=== PATIENT | female | born 1990 | race Caucasian/White ===

== ENCOUNTER 2024-10-31 19:52 | Emergency (ER) | payer SELFPAY ==
[2024-10-31 20:30] LABS: Absolute Basophils 0.1 K/uL (0-0.5); Absolute Eosinophils 0.1 K/uL (0-0.5); Absolute Lymphocytes (CBC) 2.1 K/uL (0.7-4.9); Absolute Monocytes 0.6 K/uL (0.1-1.3); Absolute Neutrophil 4.2 K/uL (1.8-8.0); Basophils % 0.8 % (0-1.3); Eosinophils % 1.5 % (0-4.4); Hematocrit 30.6 % (36.0-45.0); Hemoglobin 10.5 g/dL (12.0-15.0); Lymphocytes % 29.6 % (15.3-44.8); MCHC 34.3 g/dL (32.0-36.0); MCV 87.5 fL (80-100); MPV 7.4 fL (7.6-11.3); Monocytes % 8.6 % (3.3-12.3); Neutrophils % 59.5 % (41.7-73.7); Nucleated Red Blood Cells % 0.1 % (0-0); Platelets 255 thou/uL (152-406); RBC Red Blood Cell Count 3.49 M/uL (3.86-4.86); Red Cell Distribution Width 14.1 % (12.1-15.2)
[2024-10-31] MEDS ORDERED: KETOROLAC 30 MG/ML INJ ONE (20:41)
[2024-10-31 20:48] LABS: Albumin 3.3 g/dL (3.4-5.0); Albumin/Globulin Ratio 0.9 (1.1-1.8); Anion Gap 8.7 mEq/L (5.0-15.0); Bilirubin Total 0.2 mg/dL (0.2-1.0); Globulin 3.6 g/dL (2.3-3.5); Potassium 3.7 mEq/L (3.5-5.1); Protein, Total 6.9 g/dL (6.4-8.2)
--- NOTE | 2024-10-31 20:55 | EDPHYS ---
Physician Documentation [facility] Name: Patrica Verde Age: 34 yrs Sex: Female : 1990 Arrival Date: 10/31/2024 Time: 19:52 Bed 13 Private MD: ED Physician Benjamin Gentile HPI: 10/31 20:31 This 34 yrs old Female presents to ER via EMS with complaints of Probable Seizure. rt 20:31 Patient presents to the ED with reported seizure starting just prior to arrival. rt Patient states that her last seizure was when she was in residential. She reports compliance with her antiepileptic therapy including Tegretol, Keppra. The patient states that she has bodyaches from the seizure but denies other acute complaints at this time, symptoms are moderate in severity, no other aggravating alleviating factors.. 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 - Infectious Disease History:: Denies. - Social history:: Smoking status: Reported history of juuling and/or vaping. - Family history:: not pertinent. ROS: 20:31 Cardiovascular: Negative for chest pain, palpitations, and edema, Respiratory: Negative rt for shortness of breath, cough, wheezing, and pleuritic chest pain, Abdomen/GI: Negative for abdominal pain, nausea, vomiting, diarrhea, and constipation, Skin: Negative for injury, rash, and discoloration, 20:31 Constitutional: Positive for body aches, Negative for fever, 20:31 Neuro: Positive for seizure activity, Negative for altered mental status, Exam: 20:31 Constitutional: This is a well developed, well nourished patient who is awake, alert, rt and in no acute distress. Head/Face: Normocephalic, atraumatic. Chest/axilla: Normal chest wall appearance and motion. Nontender with no deformity. No lesions are appreciated. Cardiovascular: Regular rate and rhythm with a normal S1 and S2. No gallops, murmurs, or rubs. Normal PMI, no JVD. No pulse deficits. Respiratory: Lungs have equal breath sounds bilaterally, clear to auscultation and percussion. No rales, rhonchi or wheezes noted. No increased work of breathing, no retractions or nasal flaring. Abdomen/GI: Soft, non-tender, with normal bowel sounds. No distension or tympany. No guarding or rebound. No evidence of tenderness throughout. Skin: Warm, dry with normal turgor. Normal color with no rashes, no lesions, and no evidence of cellulitis. MS/ Extremity: Pulses equal, no cyanosis. Neurovascular intact. Full, normal range of motion. Neuro: Awake and alert, GCS 15, oriented to person, place, time, and situation. Cranial nerves II-XII grossly intact. Motor strength 5/5 in all extremities. Sensory grossly intact. Cerebellar exam normal. Normal gait. Vital Signs: 20:01 BP 114 / 74; Pulse 66; Resp 16; Temp 98.2(O); Pulse Ox 100% on R/A; Weight 84.37 kg; dd2 Pain 7/10; 20:55 BP 105 / 67; Pulse 64; Resp 16; Temp 98.1; Pulse Ox 98% on R/A; dd2 21:35 BP 112 / 69; Pulse 68; Resp 16; Pulse Ox 99% on R/A; dd2 20:01 Pain Scale: Adult dd2 Cynthia Coma Score: 20:05 Eye Response: spontaneous(4). Motor Response: obeys commands(6). Verbal Response: dd2 oriented(5). Total: 15. 20:55 Eye Response: spontaneous(4). Motor Response: obeys commands(6). Verbal Response: dd2 oriented(5). Total: 15. MDM: 20:04 Medical Screening Exam initiated rt 20:56 Differential diagnosis: Recurrent seizure, electrolyte disturbance. Data reviewed: rt vital signs, nurses notes, lab test result(s). Consideration of Admission/Observation Escalation of care including admission/observation considered. Patient is returned to baseline neurologic status, no focal neurodeficits, labs are benign, previous epilepsy history, stable for outpatient care with her neurologist.. Test considered but Not performed: CT: Denies any trauma, headache, as per existing seizure history, CT scan of the head is not indicated. Care significantly affected by the following chronic conditions: Epilepsy. Counseling: I had a detailed discussion with the patient and/or guardian regarding the historical points, exam findings, and any diagnostic results supporting the discharge/admit diagnosis, lab results, the need for outpatient follow up. Response to treatment: the patient's symptoms have markedly improved after treatment. 10/31 20:09 Order name: CBC with Diff; Complete Time: 20:48 rt 10/31 20: Order name: CMP; Complete Time: 20:48 rt 10/31 20: Order name: Test, Serum; Complete Time: 20:48 rt Administered Medications: 20:44 Drug: Ketorolac IVP 15 mg IVP once Route: IVP; Site: left antecubital; dd2 20:59 Follow up: Response: No adverse reaction dd2 Disposition Summary: 10/31/24 20:54 Discharge Ordered Notes: Location: Home rt Problem: new rt Symptoms: have improved rt Condition: Stable rt Diagnosis - Recurrent seizure rt Followup: rt - With: Private Physician - When: 2 - 3 days - Reason: Discharge Instructions: - Discharge Summary Sheet rt - Seizure, Adult rt Forms: - Medication Reconciliation Form rt - Antibiotic Education rt - Prescription Opioid Use rt - Patient Portal Instructions rt - Leadership Thank You Letter rt Signatures: Dispatcher [employer] Benjamin Hwang MD MD rt AZ RABAGO RN RN dd2 Corrections: (The following items were deleted from the chart) 20:10 20:10 CBC+H.LAB.BRZ ordered. EDMS EDMS 20:10 20:10 COMPREHENSIVE METABOLIC PANEL+C.LAB.BRZ ordered. EDMS EDMS 20:10 20:10 TEST, SERUM+SC.LAB.BRZ ordered. EDMS EDMS
--- NOTE | 2024-10-31 20:55 | ER ---
Nurse's Notes [facility] Name: Patrica Verde Age: 34 yrs Sex: Female : 1990 Arrival Date: 10/31/2024 Time: 19:52 Bed 13 Private MD: Diagnosis: Recurrent seizure Presentation: 10/31 20:01 Chief complaint: EMS states: TONED OUT TO [facility] FOR SEIZURE ACTIVITY LASTING dd2 APPROX 10 MINS. PER EMS, PT WAS AAOX4 ON ARRIVAL AND PT HAD TREMOR ACTIVITY EN ROUTE BUT REMAINED ALERT. Coronavirus screen: At this time, the client does not indicate any symptoms associated with coronavirus-19. Ebola Screen: No symptoms or risks identified at this time. Initial Sepsis Screen: Does the patient meet any 2 criteria? No. Patient's initial sepsis screen is negative. Does the patient have a suspected source of infection? No. Patient's initial sepsis screen is negative. Risk Assessment: Do you want to hurt yourself or someone else? Patient reports no desire to harm self or others. Onset of symptoms was October 31, 2024. Care prior to arrival: IV initiated. 20 GA, in the left antecubital area. Activity prior to arrival: seizure. 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 - Infectious Disease History:: Denies. - Social history:: Smoking status: Reported history of juuling and/or vaping. - Family history:: not pertinent. Screenin:55 [facility] ED Fall Risk Assessment (Adult) History of falling in the last 3 months, dd2 including since admission No falls in past 3 months (0 pts) Confusion or Disorientation No (0 pts) Intoxicated or Sedated No (0 pts) Impaired Gait No (0 pts) Mobility Assist Device Used No (0 pt) Altered Elimination No (0 pt) Score/Fall Risk Level 0 - 2 = Low Risk Oriented to surroundings, Maintained a safe environment, Educated pt \T\ family on fall prevention, incl call for assistance when getting out of bed, Assessed \T\ reinforced patient's understanding of fall precautions, Hourly rounding (assess needs \T\ fall precautionary measures) done. Abuse screen: Denies threats or abuse. Nutritional screening: No deficits noted. Tuberculosis screening: No symptoms or risk factors identified. Assessment: 20:55 General: Appears in no apparent distress. Behavior is calm, cooperative, appropriate dd2 for age. Pain: Complains of pain in top of head and right side of the back of head Pain does not radiate. Pain currently is 8 out of 10 on a pain scale. Quality of pain is described as throbbing. Neuro: Alonzo Agitation-Sedation Scale (RASS): 0 - Alert and Calm Level of Consciousness is awake, alert, obeys commands, Oriented to person, place, time, situation, Appropriate for age Literacy Coordinator are equal bilaterally Moves all extremities. Gait is steady, Speech is normal, Facial symmetry appears normal, Pupils are PERRLA, Intact. Cardiovascular: No deficits noted. Patient's skin is warm and dry. Respiratory: No deficits noted. Airway is patent Respiratory effort is even, unlabored, Respiratory pattern is regular, symmetrical. GI: No deficits noted. Abdomen is non-distended, Abd is soft and non tender. : No deficits noted. EENT: No deficits noted. No signs and/or symptoms were reported regarding the EENT system. Derm: No deficits noted. No signs and/or symptoms reported regarding the dermatologic system. Musculoskeletal: No deficits noted. No signs and/or symptoms reported regarding the musculoskeletal system. Circulation, motion, and sensation intact. Range of motion: intact in all extremities. Vital Signs: 20:01 BP 114 / 74; Pulse 66; Resp 16; Temp 98.2(O); Pulse Ox 100% on R/A; Weight 84.37 kg; dd2 Pain 7/10; 20:55 BP 105 / 67; Pulse 64; Resp 16; Temp 98.1; Pulse Ox 98% on R/A; dd2 21:35 BP 112 / 69; Pulse 68; Resp 16; Pulse Ox 99% on R/A; dd2 20:01 Pain Scale: Adult dd2 Cynthia Coma Score: 20:05 Eye Response: spontaneous(4). Motor Response: obeys commands(6). Verbal Response: dd2 oriented(5). Total: 15. 20:55 Eye Response: spontaneous(4). Motor Response: obeys commands(6). Verbal Response: dd2 oriented(5). Total: 15. ED Course: 19:53 Patient arrived in ED. [id number] 19:56 Benjamin Gentile MD is Attending Physician. rt 20:01 AZ RABAGO RN is Primary Nurse. dd2 20:05 Triage completed. dd2 20:05 Arm band placed on right wrist. Patient placed in an exam room, on a stretcher, on dd2 pulse oximetry. 20:21 Test, Serum Sent. dd2 20:21 CMP Sent. dd2 20:21 CBC with Diff Sent. dd2 20:55 Patient has correct armband on for positive identification. Bed in low position. Call dd2 light in reach. Side rails up X2. Seizure precautions initiated. Client placed on continuous cardiac and pulse oximetry monitoring. NIBP monitoring applied. Door closed. Noise minimized. Warm blanket given. Pillow given. Verbal reassurance given. 20:55 No provider procedures requiring assistance completed. Maintain EMS IV. Dressing dd2 intact. Good blood return noted. Site clean \T\ dry. Gauge \T\ site: 20G RAC. Flushed with 10 mL NS. Patient maintains SpO2 saturation greater than 95% on room air. 21:35 Provided Education on: D/C EDUCATION. dd2 21:55 IV discontinued, intact, bleeding controlled, No redness/swelling at site. Pressure dd2 dressing applied. Administered Medications: 20:44 Drug: Ketorolac IVP 15 mg IVP once Route: IVP; Site: left antecubital; dd2 20:59 Follow up: Response: No adverse reaction dd2 Medication: 20:55 VIS not applicable for this client. dd2 Outcome: 20:54 Discharge ordered by . rt 21:55 Discharged to Rehab Facility dd2 21:55 Condition: stable 21:55 Discharge instructions given to patient, Instructed on discharge instructions, follow up and referral plans. medication usage, Demonstrated understanding of instructions, follow-up care, medications, 21:56 Patient left the ED. br2 Signatures: Josie Nj [id number] Benjamin Gentile MD MD rt Zahra Garcia, RN RN br2 AZ RABAGO, RN RN dd2
[2024-10-31 22:30] VITALS: TEMP 98.1
[2024-10-31 22:34] VITALS: BP 112/69; O2SAT 99
== END 2024-10-31 21:56 | disposition home or self-care (01) ==
LOC: ER 19:52
DX: G40.909 Epilepsy, unspecified, not intractable, without status epilepticus (principal)
CPT/HCPCS: 36415; 80053; 84703; 85025; 96374; 99284

== ENCOUNTER 2024-11-01 17:01 | Emergency (ER) | payer OTHER, SELFPAY ==
[2024-11-01] MEDS ORDERED: NA CHLORIDE 0.9% 1,000 ML ONE (17:38)
[2024-11-01] MEDS ORDERED: ACETAMINOPHEN 500 MG TAB ONE (18:11)
[2024-11-01] MEDS ORDERED: METOCLOPRAMIDE 10 MG/2mL INJ ONE (18:12)
[2024-11-01] MEDS ORDERED: DIPHENHYDRAMINE 50 MG/ML VIAL ONE (18:12)
[2024-11-01] MEDS ORDERED: NA CHLORIDE 0.9% 50 ML ONE (18:12)
[2024-11-01 18:13] LABS: Absolute Basophils 0.1 K/uL (0-0.5); Absolute Eosinophils 0.1 K/uL (0-0.5); Absolute Lymphocytes (CBC) 1.9 K/uL (0.7-4.9); Absolute Monocytes 0.5 K/uL (0.1-1.3); Absolute Neutrophil 3.8 K/uL (1.8-8.0); Basophils % 1.1 % (0-1.3); Eosinophils % 1.7 % (0-4.4); Hematocrit 34.5 % (36.0-45.0); Hemoglobin 11.7 g/dL (12.0-15.0); Lymphocytes % 30.1 % (15.3-44.8); MCH 29.8 pg (27.0-35.0); MCHC 33.9 g/dL (32.0-36.0); MCV 87.9 fL (80-100); MPV 7.7 fL (7.6-11.3); Monocytes % 7.9 % (3.3-12.3); Neutrophils % 59.2 % (41.7-73.7); Nucleated Red Blood Cells % 0.1 % (0-0); Platelets 260 thou/uL (152-406); RBC Red Blood Cell Count 3.92 M/uL (3.86-4.86)
[2024-11-01 18:17] LABS: Specific Gravity 1.008 (1.005-1.030)
[2024-11-01 18:23] LABS: Specific Gravity 1.009 (1.005-1.030); Sqamous Epithelial <5 /HPF (None Seen); Urine Bacteria <20 /HPF (<20); Urine Bilirubin NEGATIVE (Negative); Urine Blood Negative (Negative); Urine Clarity Turbid (Clear); Urine Color Colorless (Yellow); Urine Culture Reflex Order NOT NEEDED; Urine Glucose NEGATIVE (Negative); Urine Ketones NEGATIVE (Negative); Urine Microscopic Reflex YN ORDER UMIC; Urine Mucus Slight /HPF (None Seen); Urine Nitrite NEGATIVE (Negative); Urine Protein NEGATIVE (Negative); Urine RBC <5 /HPF (None Seen); Urine Urobilinogen Normal (Normal); Urine WBC <5 /HPF (<5); Urine pH 5.5 (5.0-7.0)
[2024-11-01 18:24] LABS: Barbiturates NEGATIVE (NEGATIVE); Benzodiazepines NEGATIVE (NEGATIVE); Cocaine NEGATIVE (NEGATIVE); METHAMPHETAM NEGATIVE (NEGATIVE); Methadone NEGATIVE (NEGATIVE); Opiates NEGATIVE (NEGATIVE); Phencyclidine NEGATIVE (NEGATIVE); THC Cannibis NEGATIVE (NEGATIVE)
[2024-11-01 18:24] LABS: PTT, Activated Partial Thromb 27.7 SECONDS (24.3-36.9); Protime INR 1.14
[2024-11-01 18:29] LABS: SARS-CoV-2 Antigen CONTROL BLUE LINE VIS/BG OK; SARS-CoV-2 Antigen Rapid Res Negative (Negative)
[2024-11-01 18:48] LABS: ALT/SGPT 25 U/L (13-56); AST/SGOT 23 U/L (15-37); Albumin 3.5 g/dL (3.4-5.0); Albumin/Globulin Ratio 0.9 (1.1-1.8); Alkaline Phosphatase 127 U/L (45-117); Anion Gap 9.9 mEq/L (5.0-15.0); BUN Blood Urea Nitrogen 12 mg/dL (7-18); Bicarbonate 24 mEq/L (21-32); Bilirubin Total 0.2 mg/dL (0.2-1.0); Creatine Phosphokinase 125 U/L (26-192); Globulin 3.7 g/dL (2.3-3.5); Glomerular Filtration Rate 115 ml/min (=/>90); Glucose Level 95 mg/dL (74-106); Potassium 3.9 mEq/L (3.5-5.1); Protein, Total 7.2 g/dL (6.4-8.2); Sodium Level 138 mEq/L (136-145)
[2024-11-01 18:52] LABS: Bilirubin Direct < 0.2 mg/dL (0-0.2)
--- NOTE | 2024-11-01 18:57 | RAD REPORT ---
EXAMINATION: CT HEAD WITHOUT CONTRAST CLINICAL INDICATION: Female, 34 years old.WEAKNESS TECHNIQUE: Axial CT images from the skull base to the vertex without intravenous contrast. Coronal an d sagittal reformatted images were created from the data set. One or more of the following dose reduction techniques were used: Automated exposure control, adjustment of the mA and/or kV according to patient size, and/or iterative reconstruction. Unless otherwise specified, incidental findings do not require dedicated imaging follow-up. [id number]. COMPARISON: No prior exam. FINDINGS: INTRACRANIAL: No acute intracranial hemorrhage. No hydrocephalus. No mass effect or midline shift. No significant white matter disease. VASCULATURE: No visualized abnormalities in the arteries or dural venous sinuses. SCALP/SKULL: No significant soft tissue or osseous abnormalities. SINUSES: The visualized paranasal sinuses and mastoid air cells are predominantly clear. IMPRESSION: No acute intracranial abnormality.
[2024-11-01] MEDS ORDERED: KETOROLAC 30 MG/ML INJ ONE (19:14)
--- NOTE | 2024-11-01 19:45 | EDPHYS ---
Physician Documentation [facility] Name: Patrica Verde Age: 34 yrs Sex: Female : 1990 Arrival Date: 11/01/2024 Time: 17:01 Bed 16 Private MD: ED Physician Markie Sanchez HPI: 11/01 17:25 This 34 yrs old Female presents to ER via EMS with complaints of Dizziness. cp 17:25 The patient's problem is reported as weakness, that is generalized, dizziness. cp 17:25 Onset: The symptoms/episode began/occurred today. Associated signs and symptoms: cp Pertinent positives: headache, symptoms started with right side of body shaking and pain all over, Pertinent negatives: abdominal pain, chest pain, fever. Patient's baseline: Neuro: alert and fully oriented, Motor: no deficits, Ambulation: walks without assistance, Speech: normal. 17:25 Severity of symptoms: in the emergency department the symptoms are unchanged despite cp EMS interventions. 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 - Irregular menses, Not rg5 Historical: - Allergies: 17:28 doxycycline hyclate; ph 17:28 Iodine; ph 17:28 Latex; ph 17:28 PENICILLINS; ph - Home Meds: 17:28 carbamazepine 100 mg oral Capsule, ER Multiphase 12 hr 3 caps 2 times per day [Active]; ph levetiracetam 500 mg oral tablet 2 times per day [Active]; gabapentin 100 mg oral capsule 1 cap 2 times per day [Active]; mirtazapine 15 mg oral tablet 1 tab daily [Active]; olanzapine 10 mg oral tablet 1 tab daily [Active]; - PMHx: 17:28 Anxiety; chronic back pain; depressive disorder; Seizure; ph - Immunization history:: Adult Immunizations unknown. - Infectious Disease History:: Denies. - Social history:: Smoking status: unknown. ROS: 17:30 Constitutional: Negative for fever, cp 17:30 Cardiovascular: Negative for chest pain, cp 17:30 Abdomen/GI: Positive for nausea, Negative for abdominal pain, vomiting, diarrhea, constipation, 17:30 Neuro: Positive for dizziness, headache, weakness, Negative for altered mental status, 17:30 Eyes: Negative for injury, pain, redness, and discharge, cp 17:30 ENT: Negative for drainage from ear(s), ear pain, sore throat, difficulty swallowing, difficulty handling secretions, 17:30 Respiratory: Negative for cough, shortness of breath, wheezing, 17:30 : Negative for urinary symptoms, vaginal bleeding, 17:30 All other systems are negative, Exam: 17:35 Constitutional: The patient appears in no acute distress, alert, awake, cp non-diaphoretic, non-toxic, well developed, well nourished, 17:35 Head/Face: Normocephalic, atraumatic. cp 17:35 Eyes: Periorbital structures: appear normal, Pupils: equal, round, and reactive to cp light and accomodation, Extraocular movements: intact throughout, Conjunctiva: normal, no exudate, no injection, Sclera: no appreciated abnormality, Lids and lashes: appear normal, bilaterally, 17:35 ENT: External ear(s): are unremarkable, Nose: is normal, Mouth: Lips: moist, Oral mucosa: moist, Posterior pharynx: Airway: no evidence of obstruction, patent, 17:35 Neck: ROM/movement: is normal, is supple, without pain, no range of motions cp limitations, 17:35 Chest/axilla: Inspection: normal, 17:35 Cardiovascular: Rate: normal, Rhythm: regular, Edema: is not appreciated, JVD: is not appreciated, 17:35 Respiratory: the patient does not display signs of respiratory distress, Respirations: normal, no use of accessory muscles, no retractions, labored breathing, is not present, Breath sounds: are clear throughout, no decreased breath sounds, no stridor, no wheezing, 17:35 Abdomen/GI: Inspection: abdomen appears normal, Palpation: abdomen is soft and non-tender, in all quadrants, 17:35 Neuro: Orientation: to person, place \T\ time. Mentation: is normal, Cerebellar function: Romberg testing is negative, Motor: moves all fours, no focal deficits, Sensation: no obvious gross deficits, 18:55 ECG was reviewed by the Attending Physician. cp 19:00 Radiologist reports: no acute findings cp Vital Signs: 17:26 BP 109 / 52; Pulse 65; Resp 18; Temp 97.4; Pulse Ox 98% on R/A; Weight 84.37 kg; Height ph 5 ft. 8 in. ; 19:02 BP 138 / 83; Pulse 68; Resp 18; Pulse Ox 98% on R/A; ph 19:15 BP 100 / 59; Pulse 60; Resp 17; Temp 98(O); Pulse Ox 100% on R/A; Pain 8/10; rg5 17:26 Body Mass Index 28.28 (84.37 kg, 172.72 cm) ph 19:15 Pain Scale: Adult rg5 MDM: 17:19 Medical Screening Exam initiated cp 18:15 Differential diagnosis: CVA, TIA, metabolic disorder, drug effects. 19:44 Data reviewed: vital signs, nurses notes, lab test result(s), EKG, radiologic studies, cp CT scan, and as a result, I will discharge patient. 19:44 I considered the following discharge prescriptions or medication management in the emergency department Medications were administered in the Emergency Department. See MAR. Independent interpretation of the following test(s) in the Emergency Department EKG: See my EKG interpretation above. Counseling: I had a detailed discussion with the patient and/or guardian regarding the historical points, exam findings, and any diagnostic results supporting the discharge/admit diagnosis, lab results, radiology results, to return to the emergency department if symptoms worsen or persist or if there are any questions or concerns that arise at home. Response to treatment: the patient's symptoms have mildly improved after treatment. 02 17:20 Order name: Acetaminophen; Complete Time: 18:58 cp 02/08 17:20 Order name: Basic Metabolic Panel; Complete Time: 18:58 cp 02/08 17:20 Order name: CBC with Diff; Complete Time: 18:44 cp 02/08 18:45 Interpretation: Normal except: HGB 11.7; HCT 34.5. cp 02/08 17:20 Order name: ETOH Level; Complete Time: 18:58 cp 02/08 17:20 Order name: Hepatic Function; Complete Time: 18:58 cp 02/08 19:10 Interpretation: Normal except: ALK 127; IBILI, CALC 0.0; GLOB 3.7; A/G 0.9. cp 02/08 17:20 Order name: PT-INR; Complete Time: 18:44 cp 02/08 17:20 Order name: Test, Urine; Complete Time: 18:44 cp 02/08 17:20 Order name: Ptt, Activated; Complete Time: 18:45 cp 02/08 17:20 Order name: Salicylate; Complete Time: 18:58 cp 02 17:20 Order name: Urinalysis w/ reflexes; Complete Time: 18:44 cp 11/01 19:09 Interpretation: Normal except: [facility] Turbid. cp 02 17:20 Order name: Urine Drug Screen; Complete Time: 18:45 cp 11/01 17:20 Order name: CK; Complete Time: 18:58 cp 11/01 19:10 Interpretation: Reviewed. cp 11/01 17:20 Order name: Influenza Screen (a \T\ B); Complete Time: 18:45 cp 11/01 17:20 Order name: SARS RAPID; Complete Time: 18:45 cp 11/01 17:23 Order name: Tegretol Level; Complete Time: 19:09 cp 11/01 19:09 Interpretation: Reviewed. cp 02 17:24 Order name: CT Head Brain wo Cont; Complete Time: 18:58 cp 02 18:58 Interpretation: Report reviewed. cp 11/01 17:20 Order name: EKG; Complete Time: 17:21 cp 11/01 17:20 Order name: EKG - Nurse/Tech; Complete Time: 18:06 cp 11/01 17:20 Order name: IV Saline Lock; Complete Time: 18:07 cp 11/01 17:20 Order name: Labs collected and sent; Complete Time: 18:07 cp EC:55 Rate is 70 beats/min. Rhythm is regular. NH interval is normal. QRS interval is normal. cp QT interval is normal. T waves are Inverted in lead aVR. Interpreted by me. Reviewed by me. Administered Medications: 18:06 Drug: NS 0.9% IV 1000 ml IV at 1000 ml once; to be given as a bolus over 60 minutes ph Route: IV; Rate: 1000 ml; Site: right wrist; 19:01 Follow up: Response: No adverse reaction; IV Status: Completed infusion; IV Intake: ph 1000ml 18:53 Drug: metoCLOPramide IVP 10 mg IVP once; over 1 to 2 minutes Route: IVP; Site: right ph wrist; 19:01 Follow up: Response: No adverse reaction ph 18:53 Drug: diphenhydrAMINE IVP 25 mg IVP once Route: IVP; Site: right wrist; ph 19:01 Follow up: Response: No adverse reaction ph 18:53 Drug: Acetaminophen PO 1000 mg PO once Route: PO; ph 19:01 Follow up: Response: No adverse reaction ph 19:15 Drug: Ketorolac IVP 15 mg IVP once Route: IVP; Site: right hand; rg5 19:46 Follow up: Response: No adverse reaction; Pain is decreased rg5 Disposition Summary: 11/01/24 19:44 Discharge Ordered Notes: Location: Home cp Problem: new cp Symptoms: have improved cp Condition: Stable cp Diagnosis - Weakness cp - Dizziness and giddiness cp - Pain, unspecified cp Followup: cp - With: Private Physician - When: 2 - 3 days - Reason: Recheck today's complaints Discharge Instructions: - Discharge Summary Sheet cp - Dizziness cp - Weakness cp - Acute Pain, Adult cp Forms: - Medication Reconciliation Form cp - Antibiotic Education cp - Prescription Opioid Use cp - Patient Portal Instructions cp - Leadership Thank You Letter cp Prescriptions: - Diclofenac Sodium 75 mg Oral Tablet Sustained Release - take 1 tablet ORAL route 2 times per day; 30 tablet; Refills: 0, Product cp Selection Permitted Signatures: Dispatcher [employer] EDEthel Chiu, RN RN ph Ramses Jorge, PAMELA PA cp Mauro Robles, RN RN rg5 Corrections: (The following items were deleted from the chart) 17:21 17:21 ACETAMINOPHEN+C.LAB.BRZ ordered. EDMS EDMS 17:21 17:21 BASIC METABOLIC PANEL+C.LAB.BRZ ordered. EDMS EDMS 17:21 17:21 CBC+H.LAB.BRZ ordered. EDMS EDMS 17:21 17:21 ETHANOL+C.LAB.BRZ ordered. EDMS EDMS 17:21 17:21 HEPATIC FUNCTION+C.LAB.BRZ ordered. EDMS EDMS 17:21 17:21 PROTIME (+INR)+COAG.LAB.BRZ ordered. EDMS EDMS 17:21 17:21 Test, Urine+UC.LAB.BRZ ordered. EDMS EDMS 17:21 17:21 PTT, ACTIVATED+COAG.LAB.BRZ ordered. EDMS EDMS 17:21 17:21 SALICYLATE+C.LAB.BRZ ordered. EDMS EDMS 17:21 17:21 Urinalysis+U.LAB.BRZ ordered. EDMS EDMS 17:21 17:21 URINE DRUG SCREEN+UC.LAB.BRZ ordered. EDMS EDMS 17:21 17:21 CREATINE PHOSPHOKINASE+C.LAB.BRZ ordered. EDMS EDMS 17:21 17:21 Influenza Screen (A \T\ B)+BA.LAB.BRZ ordered. EDMS EDMS 17:21 17:21 SARS-COV-2 Antigen Rapid+I.LAB.BRZ ordered. EDMS EDMS 17:30 17:30 This 34 yrs old Female presents to ER via EMS with unknown complaint. cp cp 18:07 17:20 Suicide Screening ([place]) ordered. cp ph
--- NOTE | 2024-11-01 19:45 | ER ---
Nurse's Notes [facility] Name: Patrica Verde Age: 34 yrs Sex: Female : 1990 Arrival Date: 11/01/2024 Time: 17:01 Bed 16 Private MD: Diagnosis: Weakness;Dizziness and giddiness;Pain, unspecified Presentation: 11/01 17:26 Chief complaint: EMS states: Pt from [facility], c/o generalized weakness, dizziness ph and pain all over, VSS, hx of seizures, was seen in ED last night for seizure, no seizures today. Coronavirus screen: Vaccine status: Patient reports being unvaccinated. Ebola Screen: No symptoms or risks identified at this time. Initial Sepsis Screen: Does the patient meet any 2 criteria? No. Patient's initial sepsis screen is negative. Does the patient have a suspected source of infection? No. Patient's initial sepsis screen is negative. Risk Assessment: Do you want to hurt yourself or someone else? Patient reports no desire to harm self or others. Onset of symptoms was November 01, 2024. 17:26 Method Of Arrival: EMS: [facility] ph 17:26 Acuity: JUSTYNA 3 ph Triage Assessment: 17:31 General: Appears in no apparent distress. Behavior is calm, cooperative, Reports ph fatigue for 12-24 hours. Pain: Complains of pain in "all over". Neuro: Level of Consciousness is awake, alert, obeys commands, Oriented to person, place, time, situation, Reports dizziness, weakness. Cardiovascular: Reports fatigue, lightheadedness, Capillary refill < 3 seconds in bilateral fingers Patient's skin is warm and dry. Respiratory: Airway is patent Respiratory effort is even, unlabored. GI: Patient currently denies abdominal pain, nausea, vomiting. : No signs and/or symptoms were reported regarding the genitourinary system. Derm: Skin is pink, warm \\T\\ dry. Musculoskeletal: Circulation, motion, and sensation intact. Range of motion: intact in all extremities. 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 LMP N/A - Irregular menses, Not rg5 Historical: - Allergies: 17:28 doxycycline hyclate; ph 17:28 Iodine; ph 17:28 Latex; ph 17:28 PENICILLINS; ph - Home Meds: 17:28 carbamazepine 100 mg oral Capsule, ER Multiphase 12 hr 3 caps 2 times per day [Active]; ph levetiracetam 500 mg oral tablet 2 times per day [Active]; gabapentin 100 mg oral capsule 1 cap 2 times per day [Active]; mirtazapine 15 mg oral tablet 1 tab daily [Active]; olanzapine 10 mg oral tablet 1 tab daily [Active]; - PMHx: 17:28 Anxiety; chronic back pain; depressive disorder; Seizure; ph - Immunization history:: Adult Immunizations unknown. - Infectious Disease History:: Denies. - Social history:: Smoking status: unknown. Screenin:32 [facility] ED Fall Risk Assessment (Adult) History of falling in the last 3 months, ph including since admission Yes- physiologic fall (2 pts) Confusion or Disorientation No (0 pts) Intoxicated or Sedated No (0 pts) Impaired Gait No (0 pts) Mobility Assist Device Used No (0 pt) Altered Elimination No (0 pt) Score/Fall Risk Level 0 - 2 = Low Risk Oriented to surroundings, Maintained a safe environment, Hourly rounding (assess needs \\T\\ fall precautionary measures) done. Abuse screen: Denies threats or abuse. Denies injuries from another. Nutritional screening: No deficits noted. Tuberculosis screening: No symptoms or risk factors identified. Assessment: 18:05 General: SEE TRIAGE ASSESSMENT. ph 19:15 General: Appears in no apparent distress. comfortable. rg5 19:15 Pain: Complains of pain in head Pain currently is 8 out of 10 on a pain scale. Quality rg5 of pain is described as aching. Neuro: Reports dizziness, headache. Cardiovascular: Denies chest pain, Patient's skin is warm and dry. Respiratory: Airway is patent Trachea midline Respiratory effort is even, unlabored, Respiratory pattern is regular, symmetrical. GI: Abdomen is round non-distended. : No signs and/or symptoms were reported regarding the genitourinary system. EENT: No deficits noted. Derm: Skin is intact, Skin is dry, Skin is normal. Musculoskeletal: Circulation, motion, and sensation intact. Range of motion: intact in all extremities. Vital Signs: 17:26 BP 109 / 52; Pulse 65; Resp 18; Temp 97.4; Pulse Ox 98% on R/A; Weight 84.37 kg; Height ph 5 ft. 8 in. ; 19:02 BP 138 / 83; Pulse 68; Resp 18; Pulse Ox 98% on R/A; ph 19:15 BP 100 / 59; Pulse 60; Resp 17; Temp 98(O); Pulse Ox 100% on R/A; Pain 8/10; rg5 17:26 Body Mass Index 28.28 (84.37 kg, 172.72 cm) ph 19:15 Pain Scale: Adult rg5 Vitals: 19:02 Cardiac Rhythm Assessment Sinus rhythm. ph ED Course: 17:15 Patient arrived in ED. em1 17:18 Ramses Jorge PA is PHCP. cp 17:18 Markie Sanchez MD is Attending Physician. cp 17:26 Ethel Erwin, YOSEF is Primary Nurse. ph 17:28 Triage completed. ph 17:32 Arm band placed on Patient placed in an exam room, on a stretcher, on pulse oximetry. ph 17:33 Patient has correct armband on for positive identification. Bed in low position. Call ph light in reach. Side rails up X2. Pulse ox on. NIBP on. Door closed. Noise minimized. Warm blanket given. Pillow given. 18:05 Initial lab(s) drawn, by mn, sent to lab. Urine collected: clean catch specimen, clear, ph COVID swab sent to lab. Flu and/or RSV swab sent to lab. Missed attempt(s): 20 gauge in right antecubital area. Bleeding controlled, band aid applied, catheter tip intact. Inserted saline lock: 22 gauge in right wrist, using aseptic technique. Blood collected. Flushed with 10 mL NS. 18:06 Tegretol Level Sent. ph 18:06 SARS RAPID Sent. ph 18:06 Influenza Screen (a \\T\\ B) Sent. ph 18:06 CK Sent. ph 18:07 Acetaminophen Sent. ph 18:07 Basic Metabolic Panel Sent. ph 18:07 CBC with Diff Sent. ph 18:07 ETOH Level Sent. ph 18:07 Hepatic Function Sent. ph 18:07 PT-INR Sent. ph 18:07 Test, Urine Sent. ph 18:07 Ptt, Activated Sent. ph 18:07 Salicylate Sent. ph 18:07 Urinalysis w/ reflexes Sent. ph 18:07 Urine Drug Screen Sent. ph 18:39 CT Head Brain wo Cont In Process Unspecified. EDMS 19:24 No provider procedures requiring assistance completed. rg5 19:47 IV discontinued, bleeding controlled, No redness/swelling at site. Pressure dressing rg5 applied. 20:00 Provided Education on: post er care. rg5 Administered Medications: 18:06 Drug: NS 0.9% IV 1000 ml IV at 1000 ml once; to be given as a bolus over 60 minutes ph Route: IV; Rate: 1000 ml; Site: right wrist; 19:01 Follow up: Response: No adverse reaction; IV Status: Completed infusion; IV Intake: ph 1000ml 18:53 Drug: metoCLOPramide IVP 10 mg IVP once; over 1 to 2 minutes Route: IVP; Site: right ph wrist; 19:01 Follow up: Response: No adverse reaction ph 18:53 Drug: diphenhydrAMINE IVP 25 mg IVP once Route: IVP; Site: right wrist; ph 19:01 Follow up: Response: No adverse reaction ph 18:53 Drug: Acetaminophen PO 1000 mg PO once Route: PO; ph 19:01 Follow up: Response: No adverse reaction ph 19:15 Drug: Ketorolac IVP 15 mg IVP once Route: IVP; Site: right hand; rg5 19:46 Follow up: Response: No adverse reaction; Pain is decreased rg5 Medication: 17:33 VIS not applicable for this client. ph Intake: 19:01 IV: 1000ml; Total: 1000ml. ph Outcome: 19:44 Discharge ordered by MD. cp 19:59 Discharged to home ambulatory, rg5 19:59 Condition: stable 19:59 Instructed on discharge instructions, Demonstrated understanding of instructions, Prescriptions given X 1, 20:00 Patient left the ED. rg5 Signatures: Dispatcher [employer] David Portillo em1 Ethel Erwin, RN RN ph Ramses Jorge PA PA cp Mauro Robles, RN RN rg5
[2024-11-01 20:27] VITALS: BP 100/59; TEMP 98; O2SAT 100
--- NOTE | 2024-11-04 12:50 | EKG ---
Test Date: 2024-11-01 Test Time: 18:48:05 Botany Technician: SAQIB MEASUREMENT RESULTS: Intervals: Rate: 70 ME: 160 QRSD: 84 QT: 428 QTc: 462 [place]: P: 70 ME: 160 QRS: 76 T: 45 INTERPRETIVE STATEMENTS: Sinus rhythm with occasional PVCs Prolonged QT Abnormal ECG No previous ECG available for comparison Electronically Signed On 11-04-24 12:44:45 ROLL PLUGGER by Grady Mcmanus
== END 2024-11-01 20:00 | disposition home or self-care (01) ==
LOC: ER 17:01
DX: R53.1 Weakness (principal); R42 Dizziness and giddiness; R52 Pain, unspecified; Z11.52 Encounter for screening for COVID-19
CPT/HCPCS: 93005; 85025; 81001; 80048; 36415; 82550; 80156; 81025; 85610; 80076; 85730; 80307; 87804 ×2; 70450; 99285; 80143; 80179; 82077; 87811; J2765; J1200; J7030

== ENCOUNTER 2024-11-02 19:44 | Emergency (ER) | payer OTHER, SELFPAY ==
[2024-11-02 20:34] LABS: Absolute Eosinophils 0.1 K/uL (0-0.5); Absolute Lymphocytes (CBC) 1.8 K/uL (0.7-4.9); Absolute Monocytes 0.4 K/uL (0.1-1.3); Basophils % 0.8 % (0-1.3); Eosinophils % 1.5 % (0-4.4); Hematocrit 30.5 % (36.0-45.0); Hemoglobin 10.5 g/dL (12.0-15.0); Lymphocytes % 34.4 % (15.3-44.8); MCH 29.9 pg (27.0-35.0); MCHC 34.5 g/dL (32.0-36.0); MCV 86.7 fL (80-100); MPV 7.5 fL (7.6-11.3); Neutrophils % 56.3 % (41.7-73.7); Nucleated Red Blood Cells % 0.1 % (0-0); Platelets 253 thou/uL (152-406); RBC Red Blood Cell Count 3.52 M/uL (3.86-4.86); Red Cell Distribution Width 14.1 % (12.1-15.2)
[2024-11-02] MEDS ORDERED: LORazepam 2 MG/ML VIAL ONE (20:37)
[2024-11-02] MEDS ORDERED: KETOROLAC 30 MG/ML INJ ONE (20:37)
[2024-11-02] MEDS ORDERED: NA CHLORIDE 0.9% 1,000 ML ONE (20:38)
[2024-11-02 20:58] LABS: PT Prothrombin Time 11.8 SECONDS (9.4-12.5); PTT, Activated Partial Thromb 28.4 SECONDS (24.3-36.9); Protime INR 1.13
[2024-11-02 21:03] LABS: ALT/SGPT 23 U/L (13-56); AST/SGOT 18 U/L (15-37); Albumin 3.1 g/dL (3.4-5.0); Albumin/Globulin Ratio 0.8 (1.1-1.8); Alkaline Phosphatase 119 U/L (45-117); Anion Gap 9.5 mEq/L (5.0-15.0); BUN Blood Urea Nitrogen 9 mg/dL (7-18); Bicarbonate 24 mEq/L (21-32); Globulin 3.8 g/dL (2.3-3.5); Glomerular Filtration Rate 117 ml/min (=/>90); Glucose Level 108 mg/dL (74-106); Potassium 3.5 mEq/L (3.5-5.1); Protein, Total 6.9 g/dL (6.4-8.2); Sodium Level 142 mEq/L (136-145)
[2024-11-02 21:04] LABS: Bilirubin Direct < 0.2 mg/dL (0-0.2); Bilirubin Total < 0.2 mg/dL (0.2-1.0)
[2024-11-02] MEDS ORDERED: LEVETIRACETAM 500 MG/5 ML VIAL IV ONE (21:12)
[2024-11-02] MEDS ORDERED: NA CHLORIDE 0.9% 100 ML ONE (21:12)
--- NOTE | 2024-11-02 21:31 | RAD REPORT ---
EXAMINATION: ONE VIEW CHEST XR CLINICAL INDICATION: left lower chest pain TECHNIQUE: Frontal chest projection is submitted. Examination is limited by patient positioning and t echnique. COMPARISON: No prior exam. FINDINGS: Prominent interstitial markings may represent interstitial pulmonary edema or interstitial inflammati on/infection. The heart is mildly enlarged in size. No displaced fractures identified. Prominent dextroscoliosis of the lower thoracic spine. IMPRESSION: Mild CHF is a possibility.
[2024-11-02 21:42] LABS: Barbiturates NEGATIVE (NEGATIVE); Benzodiazepines NEGATIVE (NEGATIVE); Cocaine NEGATIVE (NEGATIVE); METHAMPHETAM NEGATIVE (NEGATIVE); Methadone NEGATIVE (NEGATIVE); Opiates NEGATIVE (NEGATIVE); Phencyclidine NEGATIVE (NEGATIVE); Specific Gravity 1.016 (1.005-1.030); THC Cannibis NEGATIVE (NEGATIVE); Urine Bacteria None Seen /HPF (<20); Urine Bilirubin NEGATIVE (Negative); Urine Blood Negative (Negative); Urine Clarity Turbid (Clear); Urine Color Light-Yellow (Yellow); Urine Culture Reflex Order NOT NEEDED; Urine Glucose NEGATIVE (Negative); Urine Ketones NEGATIVE (Negative); Urine Microscopic Reflex YN ORDER UMIC; Urine Mucus Slight /HPF (None Seen); Urine Nitrite NEGATIVE (Negative); Urine Protein NEGATIVE (Negative); Urine RBC <5 /HPF (None Seen); Urine Urobilinogen Normal (Normal); Urine WBC <5 /HPF (<5); Urine pH 6.5 (5.0-7.0)
[2024-11-02] MEDS ORDERED: HYDROCODONE/APAP 7.5/325 MG TAB ONE (23:37)
--- NOTE | 2024-11-03 01:46 | ER ---
Nurse's Notes [facility] Name: Patrica Verde Age: 34 yrs Sex: Female : 1990 Arrival Date: 11/02/2024 Time: 19:44 Bed 16 Private MD: Diagnosis: Other seizures;Contusion of left front wall of thorax, initial encounter Presentation: 11/02 20:00 Chief complaint: EMS states: patients has 4 witness seizure in 1hr [employer]. rg5 20:00 Coronavirus screen: Client denies travel out of the [place] in the last 14 days. Ebola rg5 Screen: Patient negative for fever greater than or equal to 101.5 degrees Fahrenheit, and additional compatible Ebola Virus Disease symptoms Patient denies exposure to infectious person. Patient denies travel to an Ebola-affected area in the 21 days before illness onset. Initial Sepsis Screen: Does the patient meet any 2 criteria? No. Patient's initial sepsis screen is negative. Does the patient have a suspected source of infection? No. Patient's initial sepsis screen is negative. Risk Assessment: Do you want to hurt yourself or someone else? Patient reports no desire to harm self or others. Onset of symptoms was November 02, 2024. Care prior to arrival: Glucose check: 91. Activity prior to arrival: seizure. 20:00 Method Of Arrival: EMS: [facility] rg5 20:00 Acuity: JUSTYNA 3 rg5 Triage Assessment: 20:00 General: Appears in no apparent distress. comfortable, Behavior is calm, cooperative, rg5 appropriate for age. Pain: Complains of pain in anterior aspect of left lateral abdomen Pain currently is 8 out of 10 on a pain scale. Quality of pain is described as aching, Pain began 1 hour ago. EENT: No signs and/or symptoms were reported regarding the EENT system. Neuro: Level of Consciousness is awake, alert, obeys commands, Oriented to person, place, time, Seizure activity reported prior to arrival. Cardiovascular: Capillary refill < 3 seconds Patient's skin is warm and dry. Respiratory: Airway is patent Trachea midline Respiratory effort is even, unlabored, Respiratory pattern is regular, symmetrical. GI: Abdomen is round non-distended, Abd is soft and non tender. : No signs and/or symptoms were reported regarding the genitourinary system. Derm: Skin is intact, Skin is dry, Skin is normal, Skin temperature is warm. Musculoskeletal: Circulation, motion, and sensation intact. Range of motion: intact in all extremities. 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 - Infectious Disease History:: Denies. - Social history:: Smoking status: Patient reports the use of cigarette tobacco products, smokes one pack cigarettes per day. Screenin:00 [facility] ED Fall Risk Assessment (Adult) History of falling in the last 3 months, rg5 including since admission Yes- single mechanical fall (1 pt) Confusion or Disorientation No (0 pts) Intoxicated or Sedated No (0 pts) Impaired Gait No (0 pts) Mobility Assist Device Used No (0 pt) Altered Elimination No (0 pt) Score/Fall Risk Level 0 - 2 = Low Risk Oriented to surroundings, Maintained a safe environment, Hourly rounding (assess needs \T\ fall precautionary measures) done. Abuse screen: Denies threats or abuse. Nutritional screening: No deficits noted. Tuberculosis screening: No symptoms or risk factors identified. Assessment: 20:00 Reassessment: see triage assessment. rg5 21:00 Reassessment: No changes from previously documented assessment. Patient and/or family rg5 updated on plan of care and expected duration. Pain level reassessed. Patient is alert, oriented x 3, equal unlabored respirations, skin warm/dry/pink. 22:00 Reassessment: Patient and/or family updated on plan of care and expected duration. Pain rg5 level reassessed. Patient is alert, oriented x 3, equal unlabored respirations, skin warm/dry/pink. Patient states feeling better. 23:00 Reassessment: Patient and/or family updated on plan of care and expected duration. Pain rg5 level reassessed. Patient is alert, oriented x 3, equal unlabored respirations, skin warm/dry/pink. Patient states feeling better. 11/03 00:00 Reassessment: Patient and/or family updated on plan of care and expected duration. Pain rg5 level reassessed. Patient is alert, oriented x 3, equal unlabored respirations, skin warm/dry/pink. Patient states feeling better. 01:00 Reassessment: No changes from previously documented assessment. Patient and/or family rg5 updated on plan of care and expected duration. Pain level reassessed. Patient states feeling better. Vital Signs: 11/02 20:00 BP 114 / 54; Pulse 63; Resp 18; Temp 98(O); Pulse Ox 97% on R/A; Weight 84.82 kg; rg5 Height 5 ft. 9 in. ; Pain 8/10; 21:20 BP 115 / 76; Pulse 65; Resp 17; Pulse Ox 99% on R/A; rg5 22:15 BP 108 / 70; Pulse 65; Resp 17; Pulse Ox 98% on R/A; rg5 23:00 BP 110 / 72; Pulse 60; Resp 18; Pulse Ox 98% on R/A; rg5 11/03 00:00 BP 109 / 74; Pulse 58; Resp 18; Pulse Ox 98% on R/A; Pain 2/10; rg5 01:00 BP 100 / 63; Pulse 63; Resp 17; Pulse Ox 97% on R/A; rg5 11/02 20:00 Body Mass Index 27.61 (84.82 kg, 175.26 cm) rg5 11/02 20:00 Pain Scale: Adult rg5 11/03 00:00 Pain Scale: Adult rg5 ED Course: 11/02 19:52 Patient arrived in ED. rv1 19:55 Ramses Jorge PA is [facility]. cp 19:55 Ramses Anglin MD is Attending Physician. cp 20:00 Arm band placed on left wrist. EKG completed in triage. Results shown to MD. rg5 20:00 Patient has correct armband on for positive identification. Placed in gown. Bed in low rg5 position. Call light in reach. Side rails up X2. Client placed on continuous cardiac and pulse oximetry monitoring. NIBP monitoring applied. potline monitor on. Pulse ox on. Door closed. Noise minimized. Warm blanket given. Verbal reassurance given. 20:00 No provider procedures requiring assistance completed. Inserted saline lock: 20 gauge rg5 in left hand, using aseptic technique. Blood collected. Flushed with 10 mL NS. 20:03 Mauro Robles, RN is Primary Nurse. rg5 21:17 XRAY Chest (1 view) In Process Unspecified. EDMS 22:20 Triage completed. rg5 11/03 00:23 XRAY Ribs LEFT In Process Unspecified. EDMS 01:54 Provided Education on: post er care. rg5 01:54 IV discontinued, bleeding controlled, No redness/swelling at site. Pressure dressing rg5 applied. Administered Medications: 11/02 21:05 Drug: NS 0.9% IV 1000 ml IV at 1000 ml once; to be given as a bolus over 60 minutes rg5 Route: IV; Rate: 1000 ml; Site: left antecubital; 23:04 Follow up: IV Status: Completed infusion; IV Intake: 1000ml rg5 11/03 01:55 Follow up: IV Status: Completed infusion; IV Intake: 1000ml rg5 11/02 21:05 Drug: Ativan IVP 1 mg IVP once Route: IVP; Site: left hand; rg5 23:04 Follow up: Response: No adverse reaction rg5 21:05 Drug: Ketorolac IVP 15 mg IVP once Route: IVP; Site: left hand; rg5 23:04 Follow up: Response: No adverse reaction [facility] 21:24 Drug: Keppra IV 500 mg IV at calculated rate once Route: IV; Rate: calculated rate; rg5 Site: left hand; 11/03 01:55 Follow up: IV Status: Completed infusion; IV Intake: 100ml rg5 11/02 23:10 Drug: Hydrocodone-Acetaminophen PO (7.5 mg-325 mg) 1 tabs PO once; RASS on ADMIN: rg5 Combtv4, Very Agttd3, Agttd2, Rstlss1, AlertClm0, Drwsy-1, Lt Sdtn-2, Mod Sdtn-3, Dp Sdtn-4, UnArsble-5 Route: PO; 23:43 Follow up: Response: No adverse reaction rg5 Medication: 20:00 VIS not applicable for this client. rg5 Intake: 23:04 IV: 1000ml; Total: 1000ml. rg5 11/03 01:55 IV: 100ml; Total: 1100ml. rg5 01:55 IV: 1000ml; Total: 2100ml. rg5 Outcome: 01:45 Discharge ordered by MD. cp 01:54 Discharged to home ambulatory, rg5 01:54 Condition: stable 01:54 Discharge instructions given to patient, Instructed on discharge instructions, follow up and referral plans. Demonstrated understanding of instructions, follow-up care, medications, Prescriptions given X 1, 01:56 Patient left the ED. rg5 Signatures: Dispatcher [employer] EDMS Ramses Jorge PA PA cp Villegas, Rebecca rv1 Mauro Robles, RN RN rg5
--- NOTE | 2024-11-03 01:46 | EDPHYS ---
Physician Documentation [facility] Name: Patrica Verde Age: 34 yrs Sex: Female : 1990 Arrival Date: 11/02/2024 Time: 19:44 Bed 16 Private MD: Ramses Martinez HPI: 11/02 20:05 This 34 yrs old Female presents to ER via Unassigned with complaints of Seizure. cp 20:05 The patient presents with a history of multiple seizures, a total of 4. cp 20:05 Character of seizure(s): Loss of consciousness: the patient experienced loss of cp consciousness, brief, Motor activity: generalized, shaking all over, Incontinence: none. Seizure onset: today. Seizure Hx: known seizure disorder and currently taking Keppra and Tegretol. Associated injury: Chest: left lower lateral rib area. Current symptoms: awake and answering questions appropriately. 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 - Infectious Disease History:: Denies. - Social history:: Smoking status: Patient reports the use of cigarette tobacco products, smokes one pack cigarettes per day. ROS: 20:10 Constitutional: Negative for body aches, chills, fever, poor PO intake, cp 20:10 Eyes: Negative for injury, pain, redness, and discharge, cp 20:10 ENT: Negative for drainage from ear(s), ear pain, sore throat, difficulty swallowing, difficulty handling secretions, 20:10 Cardiovascular: Positive for chest pain, of the left lower lateral rib area, 20:10 Respiratory: Negative for cough, wheezing, 20:10 Abdomen/GI: Negative for vomiting, diarrhea, constipation, 20:10 Neuro: Positive for weakness, history of multiple seizures, Negative for altered mental status, 20:10 All other systems are negative, Exam: 20:05 ECG was reviewed by the Attending Physician. cp 20:15 Constitutional: The patient appears in no acute distress, alert, awake, cp non-diaphoretic, non-toxic, well developed, well nourished, 20:15 Head/Face: Normocephalic, atraumatic. cp 20:15 Eyes: Periorbital structures: appear normal, Pupils: equal, round, and reactive to light and accomodation, Extraocular movements: intact throughout, Conjunctiva: normal, no exudate, no injection, Sclera: no appreciated abnormality, Lids and lashes: appear normal, bilaterally, 20:15 ENT: External ear(s): are unremarkable, Nose: is normal, Mouth: Lips: moist, Oral mucosa: moist, Posterior pharynx: Airway: no evidence of obstruction, patent, 20:15 Neck: ROM/movement: is normal, is supple, without pain, no range of motions limitations, 20:15 Chest/axilla: Inspection: normal, Palpation: crepitus, is not appreciated, tenderness, that is moderate, of the left lower lateral rib area, 20:15 Cardiovascular: Rate: normal, Rhythm: regular, Edema: is not appreciated, JVD: is not appreciated, 20:15 Respiratory: the patient does not display signs of respiratory distress, Respirations: normal, no use of accessory muscles, no retractions, labored breathing, is not present, Breath sounds: are clear throughout, no decreased breath sounds, no stridor, no wheezing, 20:15 Abdomen/GI: Inspection: abdomen appears normal, Palpation: abdomen is soft and non-tender, in all quadrants, 20:15 Back: CVA tenderness, is absent, no vertebral tenderness, 20:15 Neuro: Orientation: to person, place \T\ time. Mentation: is normal, Motor: moves all fours, strength is normal, Sensation: no obvious gross deficits, Vital Signs: 20:00 BP 114 / 54; Pulse 63; Resp 18; Temp 98(O); Pulse Ox 97% on R/A; Weight 84.82 kg; rg5 Height 5 ft. 9 in. ; Pain 8/10; 21:20 BP 115 / 76; Pulse 65; Resp 17; Pulse Ox 99% on R/A; rg5 22:15 BP 108 / 70; Pulse 65; Resp 17; Pulse Ox 98% on R/A; rg5 23:00 BP 110 / 72; Pulse 60; Resp 18; Pulse Ox 98% on R/A; rg5 02 00:00 BP 109 / 74; Pulse 58; Resp 18; Pulse Ox 98% on R/A; Pain 2/10; rg5 01:00 BP 100 / 63; Pulse 63; Resp 17; Pulse Ox 97% on R/A; rg5 11/02 20:00 Body Mass Index 27.61 (84.82 kg, 175.26 cm) [facility] 11/02 20:00 Pain Scale: Adult [facility] 11/03 00:00 Pain Scale: Adult [facility] MDM: 11/02 19:56 Medical Screening Exam initiated 11/03 01:45 Data reviewed: vital signs, nurses notes, lab test result(s), EKG, radiologic studies, cp plain films, and as a result, I will discharge patient. 01:45 Differential diagnosis: cerebral vascular accident, drug overdose, cardiac arrhythmia, cp seizure. I considered the following discharge prescriptions or medication management in the emergency department Medications were administered in the Emergency Department. See MAR. Independent interpretation of the following test(s) in the Emergency Department EKG: See my EKG interpretation above. Care significantly affected by the following chronic conditions: seizure disorder. Counseling: I had a detailed discussion with the patient and/or guardian regarding the historical points, exam findings, and any diagnostic results supporting the discharge/admit diagnosis, lab results, radiology results, the need for outpatient follow up, a neurologist, to return to the emergency department if symptoms worsen or persist or if there are any questions or concerns that arise at home. Response to treatment: the patient's symptoms have markedly improved after treatment, and as a result, I will discharge patient. 11/02 20:01 Order name: Acetaminophen; Complete Time: 21:42 cp 11/02 21:42 Interpretation: Reviewed. 11/02 20: Order name: Basic Metabolic Panel; Complete Time: 21:42 cp 11/02 21:42 Interpretation: Normal except: CL 112; GLUC 108; CA 8.4. cp 11/02 20:01 Order name: CBC with Diff; Complete Time: 21:00 cp 11/02 21:00 Interpretation: Normal except: RBC 3.52; HGB 10.5; HCT 30.5; MPV 7.5. cp 11/02 20:01 Order name: ETOH Level; Complete Time: 21:00 cp 11/02 20:01 Order name: Hepatic Function; Complete Time: 21:42 cp 11/02 21:43 Interpretation: Normal except: ALK 119; BILIT < 0.2; IBILI, CALC 0.0; ALB 3.1; GLOB cp 3.8; A/G 0.8. 11/02 20:01 Order name: PT-INR; Complete Time: 21:00 cp 11/02 20:01 Order name: Test, Urine; Complete Time: 21:44 cp 11/02 20:01 Order name: Ptt, Activated; Complete Time: 21:00 cp 11/02 20:01 Order name: Salicylate; Complete Time: 21:42 cp 11/02 20:01 Order name: Urinalysis w/ reflexes; Complete Time: 21:44 cp 11/02 21:44 Interpretation: Normal except: [facility] Turbid. cp 11/02 20:01 Order name: Urine Drug Screen; Complete Time: 21:44 cp 11/02 21:45 Interpretation: Reviewed. cp 11/02 20:05 Order name: Tegretol Level; Complete Time: 21:00 cp 11/02 20:01 Order name: XRAY Chest (1 view); Complete Time: 21:42 cp 11/02 21:43 Interpretation: Report review. cp 11/02 23:02 Order name: XRAY Ribs LEFT cp 11/02 20:01 Order name: EKG - Nurse/Tech; Complete Time: 20:03 cp 11/02 20:01 Order name: IV Saline Lock; Complete Time: 20:29 cp 11/02 20:01 Order name: Labs collected and sent; Complete Time: 20:29 cp 11/02 20:01 Order name: Suicide Screening (Niland); Complete Time: 20:29 cp EC/09 20:05 Rate is 71 beats/min. Rhythm is regular. SD interval is normal. QRS interval is normal. cp QT interval is normal. T waves are Inverted in lead aVR. Interpreted by me. Reviewed by me. Administered Medications: 21:05 Drug: NS 0.9% IV 1000 ml IV at 1000 ml once; to be given as a bolus over 60 minutes rg5 Route: IV; Rate: 1000 ml; Site: left antecubital; 23:04 Follow up: IV Status: Completed infusion; IV Intake: 1000ml rg5 11/03 01:55 Follow up: IV Status: Completed infusion; IV Intake: 1000ml rg5 11/02 21:05 Drug: Ativan IVP 1 mg IVP once Route: IVP; Site: left hand; rg5 23:04 Follow up: Response: No adverse reaction rg5 21:05 Drug: Ketorolac IVP 15 mg IVP once Route: IVP; Site: left hand; rg5 23:04 Follow up: Response: No adverse reaction rg5 21:24 Drug: Keppra IV 500 mg IV at calculated rate once Route: IV; Rate: calculated rate; rg5 Site: left hand; 11/03 01:55 Follow up: IV Status: Completed infusion; IV Intake: 100ml rg5 11/02 23:10 Drug: Hydrocodone-Acetaminophen PO (7.5 mg-325 mg) 1 tabs PO once; RASS on ADMIN: rg5 Combtv4, Very Agttd3, Agttd2, Rstlss1, AlertClm0, Drwsy-1, Lt Sdtn-2, Mod Sdtn-3, Dp Sdtn-4, UnArsble-5 Route: PO; 23:43 Follow up: Response: No adverse reaction rg5 Disposition Summary: 11/03/24 01:45 Discharge Ordered Notes: Location: Home cp Problem: new cp Symptoms: have improved cp Condition: Stable cp Diagnosis - Other seizures cp - Contusion of left front wall of thorax, initial encounter cp Followup: cp - With: Private Physician - When: 2 - 3 days - Reason: Recheck today's complaints Discharge Instructions: - Discharge Summary Sheet cp - Chest Contusion, Adult cp - Seizure, Adult cp Forms: - Medication Reconciliation Form cp - Antibiotic Education cp - Prescription Opioid Use cp - Patient Portal Instructions cp - Leadership Thank You Letter cp Prescriptions: - Ibuprofen 800 mg Oral Tablet - take 1 tablet ORAL route every 8 hours As needed take with food; 30 tablet; cp Refills: 0, Product Selection Permitted Signatures: Dispatcher [employer] EDNC Page, PAMELA Pearce cp, Rommel, RN RN rg5 Corrections: (The following items were deleted from the chart) 20:02 20:02 ACETAMINOPHEN+C.LAB.BRZ ordered. EDMS EDMS 20:02 20:02 BASIC METABOLIC PANEL+C.LAB.BRZ ordered. EDMS EDMS 20:02 20:02 CBC+H.LAB.BRZ ordered. EDMS EDMS 20:02 20:02 ETHANOL+C.LAB.BRZ ordered. EDMS EDMS 20:02 20:02 HEPATIC FUNCTION+C.LAB.BRZ ordered. EDMS EDMS 20:02 20:02 PROTIME (+INR)+COAG.LAB.BRZ ordered. EDMS EDMS 20:02 20:02 Test, Urine+UC.LAB.BRZ ordered. EDMS EDMS 20:02 20:02 PTT, ACTIVATED+COAG.LAB.BRZ ordered. EDMS EDMS 20:02 20:02 SALICYLATE+C.LAB.BRZ ordered. EDMS EDMS 20:02 20:02 Urinalysis+U.LAB.BRZ ordered. EDMS EDMS 20:02 20:02 URINE DRUG SCREEN+UC.LAB.BRZ ordered. EDMS EDMS 20:02 20:02 Chest Single View+RAD.RAD.BRZ ordered. EDMS EDMS 23:03 23:03 Ribs Left+RAD.RAD.BRZ ordered. EDMS EDMS
[2024-11-03 02:11] VITALS: TEMP 98
[2024-11-03 02:17] VITALS: BP 100/63; O2SAT 97
--- NOTE | 2024-11-03 05:29 | RAD REPORT ---
EXAM DESCRIPTION: Ribs Left CLINICAL HISTORY: 4 years Female, PAIN Comparison: Chest radiograph dated 11/02/2024 IMPRESSION: No focal lung consolidation. No pleural effusion. No pneumothorax. Cardiomediastinal silhouette is within normal limits. No displaced rib fractures. 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 Transcribed Date/Time: 11/03/2024 5:28 AM
--- NOTE | 2024-11-04 12:46 | EKG ---
Test Date: 2024-11-02 Test Time: 19:59:43 Cardiac Cath Technologist: JOSHUA MEASUREMENT RESULTS: Intervals: Rate: 71 UT: 164 QRSD: 72 QT: 396 QTc: 430 [place]: P: 61 UT: 164 QRS: 44 T: 35 INTERPRETIVE STATEMENTS: Normal sinus rhythm Low voltage QRS Borderline ECG Compared to ECG 11/01/2024 18:48:05 Low QRS voltage now present Prolonged QT interval no longer present Electronically Signed On 11-04-24 12:42:21 DOWNSTAIRS MAID by Grady Mcmanus
== END 2024-11-03 01:56 | disposition home or self-care (01) ==
LOC: ER 19:44
DX: G40.909 Epilepsy, unspecified, not intractable, without status epilepticus (principal); S20.212A Contusion of left front wall of thorax, initial encounter
CPT/HCPCS: 36415; 71045; 80048; 80076; 80143; 80156; 80179; 80307; 81001; 81025; 82077; 85025; 85610; 85730; 93005; 96365; 96366; 96375; 99285; J1953; J7030